=== PATIENT | male | born 1960 | race African-American/Black ===

== ENCOUNTER 2021-05-26 01:54 | Emergency (ER) | payer MEDICAID ==
[~2021-05-26] VITALS: Ht 160 cm; Wt 59.0 kg
[2021-05-26] MEDS ORDERED: TETANUS, DIPHTHERIA, PERTUSSIS VAC/PF 0.5ML (>10YR OLD) IM ONE (02:15)
[2021-05-26] MEDS ORDERED: BACITRACIN ZINC OINT UDPKT TOP ONE (02:15)
[2021-05-26] MEDS ORDERED: LIDOCAINE HCL/EPINEPHRINE 1%-EPI 1:100,000 20 ML VIAL INFIL ONE (02:15)
[2021-05-26] MEDS ORDERED: LIDOCAINE HCL/EPINEPHRINE 1%-EPI 1:100,000 10 ML VIAL INFIL NR (02:30)
[2021-05-26 04:33] VITALS: BP 127/76
== END 2021-05-26 04:34 | disposition home or self-care (01) ==
LOC: ER 01:54
DX: S01.81XA Laceration without foreign body of other part of head, initial encounter (principal); I10 Essential (primary) hypertension; E78.00 Pure hypercholesterolemia, unspecified; F14.10 Cocaine abuse, uncomplicated; Y00.XXXA Assault by blunt object, initial encounter; Y93.89 Activity, other specified; Y92.018 Other place in single-family (private) house as the place of occurrence of the external cause
CPT/HCPCS: 70450; 90471; 90715; 99284; J3490